=== PATIENT | male | born 1940 | race Caucasian/White ===

== ENCOUNTER 2025-02-11 11:23 | Inpatient (IN) | payer MEDICARE ==
[2025-02-11 12:42] VITALS: BMI 29.9
[2025-02-11] MEDS ORDERED: Nitroglycerin 0.4 MG TAB (25 Tab Bottle) SL PRN (12:42)
[2025-02-11] MEDS: Nitroglycerin 2% Ointment 1 INCH/1 GM Packet TOP SCH (15:51)
[2025-02-11 18:11] LABS: Cardiac Risk 2.9 (Less than 4.5); Cholesterol 160.0 mg/dl (< 200 Desired); HDL Cholesterol 55.0 mg/dL (>60 Neg Risk); LDL Cholesterol, Calculated 85.0 mg/dL; Triglycerides 101.0 mg/dL (Less than 150)
[2025-02-11] MEDS: Enoxaparin 100 MG (1 mL) SYRINGE SC SCH (20:12)
[2025-02-11] MEDS: Rosuvastatin 20 MG TAB PO SCH (20:13)
[2025-02-12] MEDS ORDERED: Communication Order-Pharmacy FS SCH (06:00)
[2025-02-12] MEDS ORDERED: Adenosine 6 mg (2 mL) VIAL ONE (06:26)
[2025-02-12] MEDS ORDERED: Heparin 10,000 UNITS/ 10 ML VIAL ONE (06:26)
[2025-02-12] MEDS ORDERED: EPINEPHrine 1 MG/10 ML Abboject SYRINGE ONE (06:26)
[2025-02-12] MEDS ORDERED: Lidocaine 1% (PF) 30 ML VIAL ONE (06:26)
[2025-02-12] MEDS ORDERED: Nitroglycerin 50 MG/250 ML BOT 0 ML ONE (06:26)
[2025-02-12] MEDS ORDERED: PHENYLEPHRINE-NS 100 MCG/ML 10 ML SYRINGE ONE (06:26)
[2025-02-12] MEDS ORDERED: Enoxaparin 40 MG (0.4 mL) SYRINGE SC SCH (09:00)
[2025-02-12] MEDS ORDERED: Aspirin Chewable 81 MG TAB PO SCH (09:00)
[2025-02-12] MEDS ORDERED: Acetaminophen/Codeine 30-300mg Tablet PO PRN ×2 (09:09)
[2025-02-12] MEDS ORDERED: Nitroglycerin 0.4 MG TAB (25 Tab Bottle) SL PRN (09:09)
[2025-02-12] MEDS ORDERED: Iopamidol 370 76% 100 ML VIAL ONE (11:10)
[2025-02-12] MEDS: Ramipril 5 MG CAP PO SCH (11:44)
[2025-02-12] MEDS: TICAGRELOR 90 MG TABLET PO SCH (18:11)
[2025-02-13 02:25] VITALS: BP 159/72; TEMP 98
[2025-02-13] MEDS ORDERED: Aspirin 81 mg Enteric Coated Tablet PO SCH (09:00)
[2025-02-13] MEDS ORDERED: TICAGRELOR 90 MG TABLET PO SCH (09:00)
== END 2025-02-13 03:52 | disposition short-term general hospital (02) | DRG 287 ==
LOC: 2NO 11:23 → OBSVTOIN 02-12 14:36
PROVIDERS: ADMIT Internal Medicine; ATTEND Hospitalist
PROC: 4A023N7 Measurement of Cardiac Sampling and Pressure, Left Heart, Percutaneous Approach (ICD-10-PCS; principal; 2025-02-12)
PROC: B2111ZZ Fluoroscopy of Multiple Coronary Arteries using Low Osmolar Contrast (ICD-10-PCS; 2025-02-12)
PROC: B2151ZZ Fluoroscopy of Left Heart using Low Osmolar Contrast (ICD-10-PCS; 2025-02-12)
PROC: 3E033XZ Introduction of Vasopressor into Peripheral Vein, Percutaneous Approach (ICD-10-PCS; 2025-02-12)
DX: I25.110 Atherosclerotic heart disease of native coronary artery with unstable angina pectoris (principal); I45.2 Bifascicular block; I10 Essential (primary) hypertension; Z95.0 Presence of cardiac pacemaker; E78.5 Hyperlipidemia, unspecified; Z79.899 Other long term (current) drug therapy
CPT/HCPCS: 36415; 80061; 83036; 84443; 93005; 93010; 93306; 93459; 96372; 99152; 99153; C1769; C1887; G0378; J0153; J0165; J0461; J1644; J1650; J2250; J3010; Q9967

== ENCOUNTER 2025-03-21 16:51 | Emergency (ER) | payer MEDICARE ==
[2025-03-21 17:19] LABS: #Basophils 0.05 10x3/uL (0.0-0.2); #Eosinophils 0.14 10x3/uL (0.0-0.7); #Monocytes 0.53 10x3/uL (0.11-0.59); #Neutrophils 5.32 10x3/uL (1.40-6.50); %Basophils 0.7 % (0.0-1.0); %Eosinophils 1.8 % (0.0-10.0); %Lymphocytes 21.2 % (21.0-51.0); %Monocytes 6.9 % (0.0-10.0); %Neutrophils 69.3 % (42.0-75.0); Hematocrit 43.7 % (42.0-52.0); Hemoglobin 14.3 g/dL (14.0-18.0); Mean Corpuscular Hemoglobin 30.2 pg (27.0-31.0); Mean Corpuscular Volume 92.4 fL (78.0-98.0); Platelet Count 182 10x3/uL (130-400); Red Blood Cell (RBC) Count 4.73 mill/uL (4.70-6.10); White Blood Cell (WBC) Count 7.68 10x3/uL (4.8-10.8)
[2025-03-21 17:38] LABS: ALT (SGPT) 17 U/L (Less than 45); AST (SGOT) 29 U/L (11-34); Albumin 4.1 g/dL (3.1-4.5); Alkaline Phosphatase 86 U/L (40-110); Anion Gap 15 mmol/L (10-20); BUN (Urea Nitrogen) 12 mg/dL (8.4-25.7); Bilirubin, Total 0.8 mg/dL (0.3-1.2); Calc. Creatinine Clearance 0 mL/min (70-130); Calcium 9.4 mg/dL (7.8-10.44); Carbon Dioxide 22 mmol/L (23-31); Chloride 108 mmol/L (98-107); Globulin 3.0 g/dL (2.4-3.5); Glucose 111 mg/dL (83-110); Potassium 3.9 mmol/L (3.5-5.1); Sodium 141 mmol/L (136-145)
[2025-03-21] MEDS ORDERED: hydrALAZINE 20 MG/ML VIAL ONE (20:29)
[2025-03-21] MEDS ORDERED: Ramipril 5 MG CAP PO SCH (20:30)
== END 2025-03-21 20:49 | disposition home or self-care (01) ==
LOC: ERS 16:51
DX: S29.011A Strain of muscle and tendon of front wall of thorax, initial encounter (principal); I10 Essential (primary) hypertension; E78.5 Hyperlipidemia, unspecified; Z55.6 Problems related to health literacy; Z95.1 Presence of aortocoronary bypass graft; Z95.5 Presence of coronary angioplasty implant and graft; X58.XXXA Exposure to other specified factors, initial encounter
CPT/HCPCS: 36415; 71045; 71275; 74174; 80053; 84484; 85025; 93005; 94760; 96374; J0360